=== PATIENT | male | born 2000 | race Caucasian/White ===

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

== ENCOUNTER 2019-01-06 21:08 | Emergency (ER) | payer BC ==
--- NOTE | 2019-01-06 21:14 | UC ---
Ear Complaint HPI - HPI Summary HPI Summary: 18 yo male presents with LEFT ear pain. He tells me that he does a nasal wash every few days. He has been doing nasal washes more frequently this week as he has been getting over cold symptoms - sinus congestion, sore throat, and post nasal drip. Tonight he was using his nasal wash, that is pressurized, and felt a sharp pop in his left ear and had some clear drainage. Now has some decreased hearing in left ear. Denies fever. 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 - History of Current Complaint Stated Complaint: EAR ACHE Time Seen by Provider: 01/06/19 21:13 Hx Obtained From: Patient Onset/Duration: Sudden Onset Severity Initially: Severe Severity Currently: Moderate Pain Intensity: 7 Pain Scale Used: 0-10 Numeric - Allergies/Home Medications Allergies/Adverse Reactions: Allergies Allergy/AdvReac Type Severity Reaction Status Date / Time fentanyl Allergy Nausea Verified 01/06/19 21:15 morphine Allergy Nausea Verified 01/06/19 21:15 Home Medications: Home Medications Albuterol HFA INHALER* [Ventolin HFA Inhaler*] 2 puff INH Q4H PRN 01/06/19 [ History Confirmed 01/06/19] Beclomethasone 80 MCG MDI(NF) [Qvar 80 MCG MDI(NF)] 2 puff INH BID 01/06/19 [ History Confirmed 01/06/19] Fexofenadine/Pseudoephedrine [Amy-D 24 Hour Tablet] 1 each PO DAILY WITH MEAL 01/06/19 [History Confirmed 01/06/19] Fluticasone NASAL SPRAY 50MCG* [Flonase NASAL SPRAY 50MCG*] 2 spray BOTH NARES DAILY 01/06/19 [History Confirmed 01/06/19] Montelukast Sodium TAB* [Singulair TAB*] 10 mg PO DAILY 01/06/19 [History Confirmed 01/06/19] PMH/Surg Hx/FS Hx/Imm Hx - Additional Past Medical History Additional PMH: IGG deficiency Other History Of: Negative For: Anticoagulant Therapy - Surgical History Surgical History: None - Family History Known Family History: Positive: Non-Contributory - Social History Occupation: Student Lives: Dormitory/Roommates Alcohol Use: Occasionally Substance Use Type: None Smoking Status (MU): Never Smoked Tobacco Review of Systems All Other Systems Reviewed And Are Negative: No Constitutional: Positive: Negative Skin: Positive: Negative Eyes: Positive: Negative ENT: Positive: Ear Ache, Nasal Discharge Respiratory: Positive: Negative Cardiovascular: Positive: Negative Physical Exam - Summary Physical Exam Summary: GENERAL: NAD. WDWN. No pain distress. SKIN: No rashes, sores, lesions, or open wounds. HEENT: Head: AT/NC Eyes: EOM intact. Conjunctiva clear without inflammation or discharge. Ears: Hearing grossly normal. LEFT TM with moderate injection - at the 9 o'clock position there is a 1-2mm hole without drainage. No canal edema or drainage. Nose: Nasal mucosa pink and moist. NTTP maxillary and frontal sinus. Throat: Posterior oropharynx without exudates, erythema, or tonsillar enlargement. Uvula midline. NECK: Supple. Nontender. No lymphadenopathy. CHEST: CTAB. No r/r/w. No accessory muscle use. Breathing comfortably and in no distress. CV: RRR. Without m/r/g. Pulses intact. NEURO: Alert. PSYCH: Age appropriate behavior. Triage Information Reviewed: Yes Vital Signs: Vital Signs: Temp Pulse Resp BP Pulse Ox 99.4 F 75 18 118/70 98 01/06/19 21:16 01/06/19 21:16 01/06/19 21:16 01/06/19 21:16 01/06/19 21:16 Vital Signs Reviewed: Yes Ear Complaint Course/Dx - Course Course Of Treatment: Partial rupture of TM. Given that this was due to a nasal wash and his IGG def - will start him on amoxicillin. Advised to rest and refrain from putting things into his ears. - Differential Dx/Diagnosis Provider Diagnosis: Rupture of left tympanic membrane Discharge ED - Sign-Out/Discharge Documenting (check all that apply): Patient Departure All imaging exams completed and their final reports reviewed: No Studies - Discharge Plan Condition: Stable Disposition: HOME Prescriptions: Amoxicillin PO (*) [Amoxicillin 875 MG (*)] 875 mg PO BID #14 tab Patient Education Materials: Ruptured Eardrum (ED) Referrals: No Primary Care Phys,NOPCP [Primary Care Provider] - Additional Instructions: If you develop a fever, shortness of breath, chest pain, new or worsening symptoms - please call your PCP or go to the ED immediately. - Billing Disposition and Condition Condition: STABLE Disposition: Home
[2019-01-06 21:21] VITALS: BP 118/70
== END 2019-01-06 21:35 | disposition home or self-care (01) ==
LOC: UCEAST 21:08
DX: H73.892 Other specified disorders of tympanic membrane, left ear (principal); D80.3 Selective deficiency of immunoglobulin G [IgG] subclasses; Z88.5 Allergy status to narcotic agent
CPT/HCPCS: 99212; G0463

== ENCOUNTER 2019-05-13 11:54 | Emergency (ER) | payer BC ==
[2019-05-13 12:22] VITALS: BP 117/76
[2019-05-13 12:51] LABS: Influenza A Molecular Negative (Negative); Influenza B Molecular Negative (Negative)
--- NOTE | 2019-05-13 13:04 | UC ---
Throat Pain/Nasal Quentin HPI - HPI Summary HPI Summary: 18 yo male with hx lymphoma and being followed by an accordion maker for IgG def presents here with a three day hx of nasal congestion/facial pressure and pain as well as cough and headache no cp or sob - History of Current Complaint Chief Complaint: UCRespiratory Stated Complaint: SINUS ISSUE Time Seen by Provider: 05/13/19 12:23 Hx Obtained From: Patient Onset/Duration: Gradual Onset, Lasting Days Severity: Mild Pain Intensity: 4 Pain Scale Used: 0-10 Numeric Cough: Nonproductive Associated Signs & Symptoms: Positive: Sinus Discomfort, Nasal Discharge. Negative: Dysphagia - Epiglottits Risk Factors Epiglottis Risk Factors: Negative - Allergies/Home Medications Allergies/Adverse Reactions: Allergies Allergy/AdvReac Type Severity Reaction Status Date / Time fentanyl Allergy Nausea Verified 05/13/19 12:22 morphine Allergy Nausea Verified 05/13/19 12:22 Home Medications: Home Medications Hizentra 10 g SUBCUT WEEKLY 05/13/19 [History Confirmed 05/13/19] Phenylephrine/Dm/Acetaminop/GG [Mucinex Fast-Max Cold Flu] 1 tab PO Q4H [History Confirmed 05/13/19] PMH/Surg Hx/FS Hx/Imm Hx Previously Healthy: Yes Other History Of: Negative For: Anticoagulant Therapy - Surgical History Surgical History: Yes Surgery Procedure, Year, and Place: lymph node biopsies - Family History Known Family History: Positive: Hypertension, Non-Contributory - Social History Alcohol Use: Weekly Substance Use Type: Marijuana Smoking Status (MU): Never Smoked Tobacco Review of Systems All Other Systems Reviewed And Are Negative: Yes Constitutional: Positive: Fatigue Skin: Positive: Negative Eyes: Positive: Negative ENT: Positive: Sore Throat, Nasal Discharge, Sinus Congestion, Sinus Pain/ Tenderness Respiratory: Positive: Cough Cardiovascular: Positive: Negative Gastrointestinal: Positive: Negative Genitourinary: Positive: Negative Motor: Positive: Negative Neurovascular: Positive: Negative Musculoskeletal: Positive: Negative Neurological: Positive: Negative Psychological: Positive: Negative Physical Exam Triage Information Reviewed: Yes Appearance: Well-Appearing, No Pain Distress, Well-Nourished Vital Signs: Initial Vital Signs Temp 98.6 F 05/13/19 12:18 Pulse 78 05/13/19 12:18 Resp 16 05/13/19 12:18 BP 117/76 05/13/19 12:18 Pulse Ox 98 05/13/19 12:18 Vital Signs Reviewed: Yes Eyes: Positive: Conjunctiva Clear ENT: Positive: Hearing grossly normal, Pharyngeal erythema, Nasal congestion, Nasal drainage, TMs normal, Sinus tenderness, Uvula midline. Negative: Tonsillar swelling, Tonsillar exudate, Trismus, Muffled voice, Hoarse voice, Dental tenderness Neck: Positive: Supple, Nontender, No Lymphadenopathy Respiratory: Positive: Lungs clear, Normal breath sounds, No respiratory distress, No accessory muscle use Cardiovascular: Positive: RRR, No Murmur Musculoskeletal: Positive: ROM Intact, No Edema Neurological: Positive: Alert Psychological Exam: Normal Skin Exam: Normal Diagnostics - Laboratory Lab Results: influenza (-) strep (-) Throat Pain/Nasal Course/Dx - Differential Dx/Diagnosis Provider Diagnosis: Acute sinusitis with coexisting condition, need prophylactic treatment Discharge ED - Sign-Out/Discharge Documenting (check all that apply): Patient Departure All imaging exams completed and their final reports reviewed: No Studies - Discharge Plan Condition: Stable Disposition: HOME Patient Education Materials: Sinusitis (ED) Referrals: [facility] [place] [facility] [Outside] Additional Instructions: saline nasal spray recheck in 5 days if not improved - Billing Disposition and Condition Condition: STABLE Disposition: Home
== END 2019-05-13 13:12 | disposition home or self-care (01) ==
LOC: UCEAST 11:54
DX: J01.90 Acute sinusitis, unspecified (principal); D80.3 Selective deficiency of immunoglobulin G [IgG] subclasses; Z85.72 Personal history of non-Hodgkin lymphomas; Z79.899 Other long term (current) drug therapy
CPT/HCPCS: 87651; 99212; G0463

== ENCOUNTER 2019-06-14 20:09 | Emergency (ER) | payer BC ==
[2019-06-14 20:25] VITALS: BP 144/80
--- NOTE | 2019-06-14 20:32 | UC ---
Eye Complaint HPI - HPI Summary HPI Summary: 18-year-old college male who has had a red right eye with pus drainage over the past week. He does wear contact lenses however has not been wearing them recently. He denies any injury to his eye. - History of Current Complaint Chief Complaint: UCEye Stated Complaint: PINK EYE Time Seen by Provider: 06/14/19 20:22 Hx Obtained From: Patient Onset/Duration: Gradual Onset, Lasting Days Timing: Constant Severity Initially: Mild Severity Currently: Mild Pain Intensity: 0 Location of Injury: Other - No injury Aggravating Factor(s): Contact Lens - Patient has not been wearing contact lenses recently. Alleviating Factor(s): Nothing Associated Signs And Symptoms: Positive: Drainage (Purulent) - Allergies/Home Medications Allergies/Adverse Reactions: Allergies Allergy/AdvReac Type Severity Reaction Status Date / Time fentanyl Allergy Nausea Verified 06/14/19 20:25 morphine Allergy Nausea Verified 06/14/19 20:25 Home Medications: Home Medications Albuterol HFA INHALER* [Ventolin HFA Inhaler*] 2 puff INH Q4H PRN 01/06/19 [ History Confirmed 06/14/19] Beclomethasone 80 MCG MDI(NF) [Qvar 80 MCG MDI(NF)] 2 puff INH BID PRN 01/06/19 [History Confirmed 06/14/19] Fexofenadine/Pseudoephedrine [Amy-D 24 Hour Tablet] 1 each PO DAILY WITH MEAL 01/06/19 [History Confirmed 06/14/19] Fluticasone NASAL SPRAY 50MCG* [Flonase NASAL SPRAY 50MCG*] 2 spray BOTH NARES DAILY 01/06/19 [History Confirmed 06/14/19] Montelukast Sodium TAB* [Singulair TAB*] 10 mg PO DAILY 01/06/19 [History Confirmed 06/14/19] Hizentra 10 g SUBCUT WEEKLY 05/13/19 [History Confirmed 06/14/19] Phenylephrine/Dm/Acetaminop/GG [Mucinex Fast-Max Cold Flu] 1 tab PO Q4H [History Confirmed 06/14/19] PMH/Surg Hx/FS Hx/Imm Hx Previously Healthy: Yes - non-Hodgkin's lymphoma Other History Of: Negative For: Anticoagulant Therapy - Surgical History Surgical History: Yes Surgery Procedure, Year, and Place: lymph node biopsies - Family History Known Family History: Positive: Hypertension, Non-Contributory - Social History Occupation: Student Lives: Dormitory/Roommates Alcohol Use: Weekly Substance Use Type: Marijuana Smoking Status (MU): Never Smoked Tobacco Review of Systems All Other Systems Reviewed And Are Negative: Yes Eyes: Positive: Drainage, Eye Redness - Right eye redness with purulent yellow drainage Is Patient Immunocompromised?: No Physical Exam Triage Information Reviewed: Yes Appearance: Well-Appearing, No Pain Distress, Well-Nourished Vital Signs: Initial Vital Signs Temp 99.4 F 06/14/19 20:21 Pulse 82 06/14/19 20:21 Resp 16 06/14/19 20:21 BP 144/80 06/14/19 20:21 Pulse Ox 97 06/14/19 20:21 Vital Signs Reviewed: Yes Eyes: Positive: Conjunctiva Inflamed, Discharge - Yellow purulent drainage right eye. ENT: Positive: Hearing grossly normal, Pharynx normal, TMs normal, Uvula midline Musculoskeletal Exam: Normal Neurological Exam: Normal Psychological Exam: Normal Skin Exam: Normal Eye Complaint Course/Dx - Course Course Of Treatment: Patient is comfortable here. He is given a course of tobramycin here because of pharmacies are closed. He is to follow-up with the staff mechanical engineer if no improvement in 2 days. - Differential Dx/Diagnosis Provider Diagnosis: Right conjunctivitis Discharge ED - Sign-Out/Discharge Documenting (check all that apply): Patient Departure All imaging exams completed and their final reports reviewed: No Studies - Discharge Plan Condition: Fair Disposition: HOME Patient Education Materials: Conjunctivitis (ED) Referrals: No Primary Care Phys,NOPCP [Primary Care Provider] - Diego Rodriguez MD [Medical Doctor] - Additional Instructions: Good handwashing. Follow up with the staff mechanical engineer in 2 days if no improvement or if any worsening symptoms. No contact lenses until 1 week after the infection has cleared. - Billing Disposition and Condition Condition: FAIR Disposition: Home
[2019-06-14] MEDS ORDERED: Tobramycin 0.3% OPHTH.SOL* 5 ML BOT (regular eye drops) RIGHT EYE ONE (20:36)
== END 2019-06-14 20:58 | disposition home or self-care (01) ==
LOC: UCEAST 20:09
DX: H10.9 Unspecified conjunctivitis (principal); Z88.5 Allergy status to narcotic agent
CPT/HCPCS: 99212; A9270-GY; G0463